=== PATIENT | female | born 1995 | race Caucasian/White ===

== ENCOUNTER 2020-07-01 20:04 | Inpatient (IN) | payer MEDICAID ==
[~2020-07-01] VITALS: Ht 175.3 cm; Wt 144.6 kg
[2020-07-01] MEDS ORDERED: SERT50TA12 PO (20:40)
[2020-07-01] MEDS ORDERED: BUPR300T53 PO (20:40)
[2020-07-01] MEDS ORDERED: BUPR-93 PO (20:40)
[2020-07-01] MEDS ORDERED: QUET100T PO (20:40)
[2020-07-01] MEDS ORDERED: BACL10TA PO (20:40)
[2020-07-01] MEDS ORDERED: MODA100T65 PO (20:40)
[2020-07-01] MEDS ORDERED: HYDR200T83 PO (20:40)
[2020-07-01] MEDS ORDERED: QUEtiapine FUMARATE 100 MG TABLET PO PRN (21:00)
[2020-07-01] MEDS ORDERED: GuaiFENesin/D-METHORPHAN [SUGAR-FREE] 200-20MG/10 ML SYRUP UDCUP PO PRN (21:00)
[2020-07-01] MEDS ORDERED: ZOLPIDEM TARTRATE 10 MG TABLET PO PRN (21:00)
[2020-07-01] MEDS ORDERED: TUBERCULIN, PURIFIED PROTEIN DERIVATIVE 5 TU/0.1 ML SYRINGE ID ONE (21:00)
[2020-07-01] MEDS ORDERED: ACETAMINOPHEN 325 MG TABLET PO PRN (21:00)
[2020-07-01] MEDS ORDERED: PROMETHAZINE HCL 25 MG TABLET PO PRN (21:00)
[2020-07-01] MEDS ORDERED: LOPERAMIDE HCL 2 MG CAPSULE PO PRN (21:00)
[2020-07-01] MEDS ORDERED: HydrOXYzine PAMOATE 50 MG CAPSULE PO PRN (21:00)
[2020-07-01] MEDS ORDERED: MAG HYDROX/AL HYDROX/SIMETH ES 30 ML SUSPENSION UDCUP PO PRN (21:00)
[2020-07-01] MEDS ORDERED: MAGNESIUM HYDROXIDE SUSPENSION 30 ML UDCUP PO PRN (21:00)
[2020-07-01] MEDS ORDERED: INFLUENZA VIRUS VACCINE QVS 2020-21 (6MO+)/PF 60 MCG/0.5 ML SYRINGE IM ONE (23:30)
[2020-07-02 00:35] VITALS: BP 132/78
[2020-07-02] MEDS: MULTIVITAMINS WITH MINERALS, THERAPEUTIC TABLET PO SCH (08:33)
[2020-07-02] MEDS: FOLIC ACID 1 MG TABLET PO SCH (08:33)
[2020-07-02] MEDS: THIAMINE 100 MG TABLET PO SCH ×2 (08:33→16:45)
[2020-07-02] MEDS: OMEGA-3/DHA/EPA/FISH OIL 1,000 MG CAPSULE PO SCH (08:33)
[2020-07-02] MEDS: NALTREXONE HCL 50 MG TABLET PO SCH (08:33)
[2020-07-02] MEDS ORDERED: FLUoxetine HCL 20 MG CAPSULE PO SCH (09:00)
[2020-07-02] MEDS: LORazepam 2 MG TABLET PO PRN ×2 (09:29→16:45)
[2020-07-02 12:42] VITALS: BP 116/74
[2020-07-02 16:09] VITALS: BP 118/64
[2020-07-02] MEDS ORDERED: BUPR-47 PO (16:56)
[2020-07-02] MEDS ORDERED: OMEG-135 PO (16:56)
[2020-07-02] MEDS ORDERED: NALT50TA PO (16:56)
[2020-07-02] MEDS ORDERED: SERT50TA12 PO (16:56)
[2020-07-02] MEDS ORDERED: TraZODone HCL 50 MG TABLET PO SCH (21:00)
[2020-07-03 01:12] VITALS: BP 102/70
[2020-07-03 07:58] LABS: BASOPHILS % (AUTO) 1.1 % (0.0-2.0); EOSINOPHILS % (AUTO) 3.4 % (1.0-6.0); HEMATOCRIT 39.5 % (36-46); HEMOGLOBIN 13.5 g/dL (12.0-16.0); LYMPHOCYTES # (AUTO) 1.8 K/uL (1.0-4.8); LYMPHOCYTES % (AUTO) 23.4 % (22.0-44.0); MEAN CORPUSCULAR HEMOGLOBIN 30.9 pg (26.0-34.0); MEAN CORPUSCULAR HGB CONC 34.3 G/dL (31.0-37.0); MEAN CORPUSCULAR VOLUME 90 fL (80-100); MONOCYTES # (AUTO) 0.6 K/uL (0.1-1.0); MONOCYTES % (AUTO) 8.1 % (2.0-9.0); NEUTROPHILS # (AUTO) 4.8 K/uL (1.8-7.7); PLATELET COUNT (AUTO) 289 K/uL (150-450); RED BLOOD CELL COUNT(AUTO) 4.38 MIL/uL (4.00-5.20)
[2020-07-03] MEDS: FOLIC ACID 1 MG TABLET PO SCH (08:11)
[2020-07-03] MEDS: OMEGA-3/DHA/EPA/FISH OIL 1,000 MG CAPSULE PO SCH (08:12)
[2020-07-03] MEDS: THIAMINE 100 MG TABLET PO SCH (08:12)
[2020-07-03] MEDS: NALTREXONE HCL 50 MG TABLET PO SCH (08:12)
[2020-07-03] MEDS: MULTIVITAMINS WITH MINERALS, THERAPEUTIC TABLET PO SCH (08:12)
[2020-07-03 08:22] VITALS: BP 119/80
[2020-07-03 08:29] LABS: ALANINE AMINOTRANSFERASE 19 U/L (12-78); ALBUMIN 3.5 g/dL (3.4-5.0); ALKALINE PHOSPHATASE 91 U/L (46-116); ANION GAP 10 mmol/L (8-16); ASPARTATE AMINOTRANSFERASE 18 U/L (15-37); BILIRUBIN,TOTAL 0.4 mg/dL (0.1-1.0); CALCIUM, TOTAL 9.2 mg/dL (8.8-10.5); CARBON DIOXIDE 24 mmol/L (22-29); CHLORIDE 105 mmol/L (98-107); CHOL/HDL RATIO 7.4 (3.9-5.7); CHOLESTEROL 243 mg/dL (131-200); CREATININE 0.69 mg/dL (0.60-1.30); GLOMERULAR FILTR. RATE CALC > 60 mL/min (>60); GLUCOSE,RANDOM 87 mg/dL (70-110); HCG,QUANTITATIVE < 1 mIU/mL (0-6); HDL CHOLESTEROL 33 mg/dL (40-60); LDL CHOL (CALC.) 182 mg/dL (0-130); POTASSIUM 4.2 mmol/L (3.5-5.1); SODIUM SERUM 139 mmol/L (136-145); THYROID STIMULATING HORMONE 1.02 uIU/mL (0.36-3.74); TOTAL PROTEIN, SERUM 6.3 g/dL (6.4-8.2); TRIGLYCERIDES 140 mg/dL (15-150); UREA NITROGEN, BLOOD 9 mg/dL (7-18)
[2020-07-03 08:47] LABS: HEMOGLOBIN A1C 5.2 % (3.8-5.6)
[2020-07-03] MEDS ORDERED: SERTRALINE HCL 50 MG TABLET PO SCH (09:00)
[2020-07-03] MEDS ORDERED: BuPROPion HCL XL 150 MG ER TABLET PO SCH (09:00)
[2020-07-03] MEDS ORDERED: MODAFINIL 100 MG TABLET PO SCH (09:00)
== END 2020-07-03 13:15 | disposition home or self-care (01) | DRG 751 ==
LOC: B3A 22:24
PROVIDERS: ADMIT Psychiatry & Neurology Psychiatry; ATTEND Psychiatry & Neurology Psychiatry
DX: F33.2 Major depressive disorder, recurrent severe without psychotic features (principal); G35 Multiple sclerosis; L93.0 Discoid lupus erythematosus; Z88.8 Allergy status to other drugs, medicaments and biological substances; F12.90 Cannabis use, unspecified, uncomplicated; Z91.5 Personal history of self-harm; T42.6X2A Poisoning by other antiepileptic and sedative-hypnotic drugs, intentional self-harm, initial encounter; Y92.89 Other specified places as the place of occurrence of the external cause; Z28.21 Immunization not carried out because of patient refusal
CPT/HCPCS: 83036; 84439; 84443; 86592; 90686